=== PATIENT | female | born 2000 | race Caucasian/White ===

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

== ENCOUNTER 2020-05-30 15:06 | Emergency (ER) | payer MEDICAID ==
[~2020-05-30] VITALS: Ht 162.6 cm; Wt 59.1 kg
[2020-05-30 15:14] VITALS: BP 130/77; Ht 162.6 cm; Wt 59.1 kg
== END 2020-05-30 18:29 | disposition left against medical advice (07) ==
LOC: D.ER 15:06
DX: R52 Pain, unspecified (principal); V89.2XXA Person injured in unspecified motor-vehicle accident, traffic, initial encounter; Z53.21 Procedure and treatment not carried out due to patient leaving prior to being seen by health care provider